=== PATIENT | female | born 1945 | race Two or more races ===

== ENCOUNTER 2021-04-04 17:20 | Emergency (ER) | payer OTHER ==
[~2021-04-04] VITALS: Ht 177.8 cm; Wt 104.3 kg
== END 2021-04-05 04:05 ==
LOC: EDBD 17:20 → ER 17:20
DX: I46.9 Cardiac arrest, cause unspecified (principal); R41.82 Altered mental status, unspecified; E11.9 Type 2 diabetes mellitus without complications; I10 Essential (primary) hypertension; R42 Dizziness and giddiness